=== PATIENT | male | born 1955 | race Caucasian/White ===

== ENCOUNTER → 2017-07-31 | Outpatient (CLI) | payer BC | END | disposition home or self-care (01) | LOC: KCIC CT 11:13 | DX: J32.9 Chronic sinusitis, unspecified (principal); E11.9 Type 2 diabetes mellitus without complications | CPT/HCPCS: 70486 ==

== ENCOUNTER → 2017-08-07 | Outpatient (CLI) | payer BC ==
[~2017-08-07] MED LIST: CONTRAST GIVEN MC
[2017-08-07] MEDS: IOHEXOL 300 MG/ML 100ML VIAL. IV ×2 (14:49)
[2017-08-07 15:29] LABS: ISTAT CREATININE 0.5 mg/dL (0.7-1.3)
== END | disposition home or self-care (01) ==
LOC: KCIC CT 14:29
DX: C01 Malignant neoplasm of base of tongue (principal); E04.1 Nontoxic single thyroid nodule; M50.30 Other cervical disc degeneration, unspecified cervical region; M47.892 Other spondylosis, cervical region; M48.02 Spinal stenosis, cervical region
CPT/HCPCS: 70491; 82565; Q9967

== ENCOUNTER → 2018-10-28 | Outpatient (CLI) | payer MEDICARE, OTHER ==
[~2018-10-28] MED LIST changes: +ATOR10TA60 PO; -CONTRAST GIVEN MC; +INSU100I13 SQ; +LISI2.5T PO; +METF500T16 PO
--- NOTE | 2018-10-28 11:23 | CARD ---
MR#: [id number] Date of Study: 10/28/2018 Ordering Physician: GRISEL MORSE, Referring Physician: GRISEL MORSE, Tech: Yeny Lilly APPROVED REPORT EXAM: Two-dimensional and M-mode echocardiogram with Doppler and color Doppler. Other Information Quality : ExcellentHR: 88bpm INDICATION Pleural Effusion RISK FACTORS Hypertension Hyperlipidemia Diabetes 2D DIMENSIONS RVDd4.4 (2.9-3.5cm)Left Atrium(2D)4.2 (1.6-4.0cm) IVSd1.3 (0.7-1.1cm)Aortic Root(2D)3.7 (2.0-3.7cm) LVDd5.4 (3.9-5.9cm)LVOT Diameter2.2 (1.8-2.4cm) PWd1.2 (0.7-1.1cm)LVDs3.8 (2.5-4.0cm) FS (%) 29.6 %SV80.6 ml LVEF(%)56.1 (>50%) Aortic Valve AoV Peak Jr.127.1cm/sAoV VTI21.5cm AO Peak GR.6.5mmHgLVOT Peak Jr.86.7cm/s LVOT VTI 16.84cmAO Mean GR.3mmHg LIZETH (VMAX)1.19kc5AMT (VTI)3.07cm2 Mitral Valve MV E Sdfdkstd93.2cm/sMV E Peak Gr.132mmHg MV DECEL [id number] A Eqnnrdhm88.6cm/s MV E Mean Gr.2mmHgMV [id number] E/A Ratio3.5MVA (PHT)4.82cm2 TDI E/Lateral E'7.1E/Medial E'11.8 Pulmonary Valve PV Peak Viscxrba136.0cm/sPV Peak Grad.4mmHg Tricuspid Valve TR P. Lovqdhpd855qr/sRAP UXEVIFEN10urSi TR Peak Gr.04xxHmZDEC92giTb Pulmonary Vein S1 Hxuyngfc72.2cm/sD2 Paaiucha19.7cm/s PVa kfgpqgid96ywas LEFT VENTRICLE The left ventricle is normal size. There is mild to moderate concentric left ventricular hypertrophy. The systolic function is moderately to severely impaired. The Ejection Fraction is 30-35%. There is global hypokinesis of the left ventricle. Transmitral Doppler flow pattern is Grade II-pseudonormal f illing dynamics. RIGHT VENTRICLE The right ventricle is borderline dilated. There is normal right ventricular wall thickness. The righ t ventricular systolic function is normal. ATRIA The left atrium is moderately dilated. The right atrium is moderately dilated. The interatrial septum is intact with no evidence for an atrial septal defect or patent foramen ovale as noted on 2-D or Do ppler imaging. AORTIC VALVE The aortic valve is calcified and not well visualized. Doppler and Color Flow revealed trace to mild aortic regurgitation. There is no significant aortic valvular stenosis. MITRAL VALVE Restricted posterior mitral leaflet. There is no evidence of mitral valve prolapse. There is no lorenza l valve stenosis. Doppler and Color-flow revealed moderate to severe mitral regurgitation. TRICUSPID VALVE The tricuspid valve is normal in structure and function. Doppler and Color Flow revealed trace to mil d tricuspid regurgitation with an estimated PAP of 64 mmHg. There is no tricuspid valve stenosis. PULMONIC VALVE The pulmonic valve is not well visualized. Doppler and Color Flow revealed no pulmonic valvular regur gitation. There is no pulmonic valvular stenosis. GREAT VESSELS The aortic root is normal in size. The IVC is dilated and collapses <50% with inspiration. PERICARDIAL EFFUSION There is moderate left pleural effusion. There is no evidence of significant pericardial effusion. Critical Notification Critical Value: No <Conclusion> The systolic function is moderately to severely impaired. The Ejection Fraction is 30-35%. There is global hypokinesis of the left ventricle. Doppler and Color-flow revealed moderate to severe mitral regurgitation. Doppler and Color Flow revealed trace to mild tricuspid regurgitation with an estimated PAP of 64 mmH g. There is moderate left pleural effusion. Signed by : Bishop Shea, Electronically Approved : 10/28/2018 11:22:22
== END | disposition home or self-care (01) ==
LOC: ECHO 08:53
PROVIDERS: ATTEND Internal Medicine
DX: I34.0 Nonrheumatic mitral (valve) insufficiency (principal); J90 Pleural effusion, not elsewhere classified; I11.9 Hypertensive heart disease without heart failure; E78.5 Hyperlipidemia, unspecified; E11.9 Type 2 diabetes mellitus without complications
CPT/HCPCS: 93306